=== PATIENT | male | born 1960 | race African-American/Black ===

== ENCOUNTER 2019-01-24 05:50 | Emergency (ER) | payer SELFPAY ==
[~2019-01-24] VITALS: Ht 198.1 cm; Wt 138.0 kg
[2019-01-24 08:40] VITALS: BP 135/84
== END 2019-01-24 08:46 | disposition home or self-care (01) ==
LOC: ER 05:50
DX: M17.12 Unilateral primary osteoarthritis, left knee (principal); I10 Essential (primary) hypertension; Z88.0 Allergy status to penicillin
CPT/HCPCS: 73560; 99283